=== PATIENT | female | born 1955 | race Caucasian/White ===

== ENCOUNTER 2017-07-30 11:55 | Emergency (ER) | payer MEDICAID ==
[~2017-07-30] VITALS: Ht 162.6 cm; Wt 110.2 kg
[~2017-07-30 11:55] MED LIST: ALLEGRA180 MG PO; AMBIEN 10 MG TA10 MG PO; BIOTIN PLUS-CA1 EACH PO; CERTAGEN SOL1 BO1 NG; EFFEXOR75 MG PO; IBUPROFEN 800800 MG PO; IRON18 MG PO; LEVOTHROID 00.075 M1 PO; LISINOPRIL20 MG PO; METFORMIN 500500 MG PO; OMEPRAZOLE20 MG PO; VALIUM5 MG PO; VICODIN 5-5001 EACH PO; VITAMIN B12 5500 MC1 PO; VITAMIN D400 UNI1 PO
[2017-07-30 12:26] LABS: URINE BILIRUBIN NEGATIVE (Negative); URINE BLOOD NEGATIVE (Negative); URINE CLARITY SL CLOUDY; URINE COLOR YELLOW; URINE GLUCOSE-RANDOM NEGATIVE (Negative); URINE KETONES NEGATIVE (Negative); URINE LEUKOCYTES 2+ (Negative); URINE NITRITE NEGATIVE (Negative); URINE PROTEIN NEGATIVE (Negative); URINE SPECIFIC GRAVITY >= 1.030 (1.005-1.030); URINE UROBILINOGEN 0.2 E.U./dl (0.2-1.0)
[2017-07-30] MEDS ORDERED: PRINIVIL20 MG PO (12:27)
[2017-07-30] MEDS ORDERED: HYDROXYZINE PAM50 MG PO (12:28)
[2017-07-30] MEDS ORDERED: VITAMIN D250000 UNIT PO (12:29)
[2017-07-30] MEDS ORDERED: NEURONTIN 300300 M1 PO (12:30)
[2017-07-30] MEDS ORDERED: ZANTAC 150MG T150 M1 PO (12:31)
[2017-07-30] MEDS ORDERED: ZOLOFT100 MG PO (12:31)
[2017-07-30] MEDS ORDERED: CLARITIN10 MG PO (12:32)
[2017-07-30] MEDS ORDERED: NEXIUM40 MG PO (12:32)
[2017-07-30] MEDS ORDERED: RESTASIS1 EACH OPHTHALMIC (12:32)
[2017-07-30] MEDS ORDERED: SYNTHROID75 MCG PO (12:32)
[2017-07-30] MEDS ORDERED: ALLER-EASE180 MG PO (12:33)
[2017-07-30 12:34] LABS: SQUAMOUS >10 Many /LPF (0-3); URINE RBC 0-2 Rare /HPF (0-2)
[2017-07-30 12:35] LABS: CASTS None Seen /LPF (None Seen); CRYSTALS None Seen /LPF (None Seen)
[2017-07-30 12:40] LABS: AMP/METHAMP Negative (Negative); BARBITURATES POSITIVE (Negative); BENZODIAZEPINES Negative (Negative); COCAINE Negative (Negative); METHADONE Negative (Negative); OPIATES Negative (Negative); PCP Negative (Negative); THC Negative (Negative)
[2017-07-30 12:40] LABS: ABSOLUTE BASOPHILS 0.1 thou/uL (0.0-0.2); ABSOLUTE EOSINOPHILS 0.5 thou/uL (0.0-0.7); ABSOLUTE LYMPHOCYTES 2.1 thou/uL (0.8-5.3); ABSOLUTE MONOCYTES 0.4 thou/uL (0.0-1.2); ABSOLUTE NEUTROPHILS 4.3 thou/uL (1.6-8.1); EOSINOPHILS 6.8 %; HEMATOCRIT 39.2 % (37.0-47.0); HEMOGLOBIN 12.4 gm/dL (12.0-15.0); LYMPHOCYTES 28.7 %; MCH 26.4 pg (26.0-34.0); MCHC 31.6 g/dL (28.0-37.0); MCV 83.7 fL (80.0-100.0); MONOCYTES 5.3 %; MPV 7.7 fl. (7.2-11.1); NUCLEATED RBCS 0 /100WBC; PLATELET COUNT* 270 thou/uL (150-400); POLYS 58.2 %; RBC 4.69 mil/uL (4.20-5.00); RDW-CV 24.2 % (10.5-14.5); WBC 7.3 thou/uL (4.0-11.0)
[2017-07-30 12:48] LABS: ANION GAP 6 mmol/L (7-16); BUN 22 mg/dL (7-18); CHLORIDE 106 mmol/L (98-107); CO2 29 mmol/L (21-32); CREATININE 0.9 mg/dL (0.6-1.3); GLUCOSE 157 mg/dL (70-99); POTASSIUM 4.4 mmol/L (3.5-5.1); SODIUM 141 mmol/L (136-145)
[2017-07-30 12:55] LABS: ALBUMIN 3.5 g/dL (3.4-5.0); ALKALINE PHOSPHATASE 96 U/L (46-116); LIPASE 49 U/L (73-393); SGOT 19 U/L (15-37); SGPT 29 U/L (30-65); TOTAL BILIRUBIN 0.2 mg/dL (<0.1-1.0); TOTAL PROTEIN 6.7 g/dL (6.4-8.2); TROPONIN-I LEVEL <0.06 ng/mL (<0.06)
[2017-07-30 12:58] LABS: ANISOCYTOSIS 2+; PLATELET ESTIMATE ADEQUATE
[2017-07-30] MEDS ORDERED: ZOFRAN ODT4 MG PO (13:50)
[2017-07-30 14:04] VITALS: BP 113/66
--- NOTE | 2017-07-31 16:22 | EKG ---
[place] [address] ELECTROCARDIOGRAM REPORT Name: CHELY BENSON Room: [facility]#: [id number] Admission: 07/30/17 Attend Phys: Discharge: 07/30/17 Date of : 59 Report #: [id number] THIS REPORT FOR: //name// [facility] ED Test Date: 2017-07-30 Test Time: 12:53:34 Pat Name: CHELY BENSON Department: Room: Gender: F Billing Services Manager: : 1955 Requested By: Aretha Villalobos Order Number: [id number] MD: Manoj Zaidi Measurements Intervals [place] Rate: 60 P: 42 HI: 171 QRS: -14 QRSD: 100 T: 30 QT: 465 QTc: 465 Interpretive Statements Sinus rhythm Low voltage, precordial leads No previous ECG available for comparison Electronically Signed On 07-31-2017 16:22:38 [employer] by Manoj Zaidi [email or web address] <ELECTRONICALLY SIGNED> By: Manoj Zaidi MD, [facility] 07/31/17 1622 1253 [id number] Manoj Zaidi MD, FACC /EPI
== END 2017-07-30 14:05 | disposition home or self-care (01) ==
LOC: M.ERS 11:55
PROVIDERS: Physician Assistant
DX: R11.0 Nausea (principal); M19.90 Unspecified osteoarthritis, unspecified site; I10 Essential (primary) hypertension; E03.9 Hypothyroidism, unspecified; J42 Unspecified chronic bronchitis; E78.00 Pure hypercholesterolemia, unspecified; K21.9 Gastro-esophageal reflux disease without esophagitis; G89.29 Other chronic pain; R07.89 Other chest pain; Z90.710 Acquired absence of both cervix and uterus; Z88.2 Allergy status to sulfonamides